=== PATIENT | male | born 1990 | race Two or more races ===

== ENCOUNTER 2018-03-17 15:26 | Emergency (ER) | payer SELFPAY ==
[2018-03-17] MEDS ORDERED: KETOROLAC 30 MG/ML VIAL IVP ONE (15:44)
--- NOTE | 2018-03-17 15:45 | Emergency Department Record ---
History of Present Illness - General Chief Complaint: Chest Pain Stated Complaint: chest pain Time Seen by Provider: 03/17/18 15:37 Source: Patient Mode of Arrival: Ambulatory Limitations: No limitations - History of Present Illness Initial Comments: The patient is here due to a 12 hour hx of first upper back pain then chest pain. He noticed sharp aching upper back pain about 12 hours ago between his shoulder blades mainly while arguing with his significant other. That pain did then resolve and the patient was able to go to sleep. He then woke up at 11am today with sharp stabbing L sided CP. The pain is intermittent and only lasts seconds at a time. The pain onset is mainly with movement, bending, talking and with deep breathing. He does feel mildly SOB with it at times but denies any sweating or nausea. The patient states when he is sitting and not moving or talking he has no pain. He has no hx of any cardiac issues or any CP with exertion. The patient does smoke cigarettes and has recently (1 week ago approx. ) used cocaine. The patient's only cardiac risk factor is tobacco use. MD Complaint: Chest pain Onset/Timin -: Hour(s) Pain Location: Substernal Pain Radiation: Back Severity: Mild Severity scale (1-10): 4 Consistency: Constant Improves With: Remaining still Worsens With: Movement Treatments Prior to Arrival: None - Related Data Previous Rx's Medication Instructions Recorded Naproxen [Naprosyn] 500 mg PO BID #14 tablet. 03/17/18 Allergies Allergy/AdvReac Type Severity Reaction Status Date / Time No Known Drug Allergies Allergy Verified 03/17/18 15:35 Travel Screening - Travel/Exposure Within Last 30 Days Have you traveled within the last 30 days?: No Review of Systems Constitutional: Denies: Chills, Fever Eyes: Denies: Eye discharge ENT: Denies: Congestion Respiratory: Denies: Cough, Dyspnea Cardiovascular: Denies: Arrhythmia Past Medical History - SOCIAL HISTORY Smoking Status: Current every day smoker Alcohol Use: None Drug Use: Occasional Drug Use Detail:: Cocaine, Marijuana - RESPIRATORY Hx Respiratory Disorders: No - CARDIOVASCULAR Hx Cardio Disorders: No - NEURO Hx Neuro Disorders: No - GI Hx GI Disorders: No - Hx Genitourinary Disorders: No - ENDOCRINE Hx Endocrine Disorders: No - MUSCULOSKELETAL Hx Musculoskeletal Disorders: No - PSYCH Hx Psych Problems: No - HEMATOLOGY/ONCOLOGY Hx Hematology/Oncology Disorders: No Family Medical History Any Significant Family History?: Yes Family Hx Comment (NOT TO BE USED IN PLACE OF ITEMS BELOW): mother- high cholesterol Hx Heart Disease: Mother Hx HTN: Father Physical Exam - General General Appearance: Alert, Oriented x3, Cooperative, No acute distress - Head Head exam: Atraumatic, Normocephalic, Normal inspection - Eye Eye exam: Normal appearance, PERRL - ENT Throat exam: Normal inspection. negative: Tonsillar erythema, Tonsillar exudate - Neck Neck exam: Normal inspection, Full ROM. negative: Tenderness - Respiratory Respiratory exam: Normal lung sounds bilaterally, Chest wall tenderness (THe L upper CP is 100% reproducible to palpation over the L 3rd and 4th costochondral joints. The patient is also 100% reproduced with deep breathing and twisting.). negative: Accessory muscle use, Decreased breath sounds, Prolonged expiratory , Respiratory distress - Cardiovascular Cardiovascular Exam: Regular rate, Normal rhythm, Normal heart sounds. negative : Diastolic murmur, Systolic murmur - GI/Abdominal GI/Abdominal exam: Soft, Normal bowel sounds. negative: Tenderness - Extremities Extremities exam: Normal inspection, Full ROM, Normal capillary refill. negative: Tenderness Image of Full Body: 1 - Area of pain and tenderness that reproduces the patient's pain. - Neurological Neurological exam: Alert. negative: Motor sensory deficit Course Vital Signs 03/17/18 15:29 Temperature 97.9 F Pulse Rate 103 H Respiratory 20 Rate Blood Pressure 145/74 Pulse Ox 99 - Reevaluation(s) Reevaluation #1: The patient is doing better at this time. His pain is much improved and basically gone at this time. The patient still feels the pain when twisting his chest. 03/17/18 16:31 Reevaluation #2: The patient is doing MUCH better at this time and is basically pain free. I did discuss the need to stop using illegal drugs with the patient. I also did discuss the Radiology xray read and the need for a repeat CXR in 3-6 months. Due to the time of the onset of the pain I did recommend a short stay for monitoring in the ED and repeat cardiac enzymes to be sure the patient is not having any cardiac ischemia. The patient is refusing that plan and would like to leave AMA. I did explain to him that by leaving AMA we cannot be held liable for NOT diagnosing any cardiac ischemia, which could lead to a stroke, [place], being disabled and . The patient understands and accepts the risks. He is to take the Naprosyn for pain and see his PCP next week for recheck. 03/17/18 16:53 Medical Decision Making - Data Complexity MDM Data: Labs Ordered and/or Reviewed, X-Ray Ordered and/or Reviewed, EKG Ordered and/or Reviewed - Lab Data Result diagrams: 03/17/18 15:46 03/17/18 15:46 - EKG Data -: EKG Interpreted by Me EKG: No Acute Changes (Diffuse J point elevation anterior leads. Normal variant. Neg for ischemia.), Normal EKG - Radiology Data Radiology results: Report reviewed (CXR: Neg for any acute process, ? two small lung nodules.) Disposition Disposition: Discharge Clinical Impression: Acute chest wall pain Disposition: Against Medical Advice Condition: (2) Stable Instructions: Chest Wall Pain (ED) Additional Instructions: Please take the Naprosyn for pain and please stop smoking and stop using illegal drugs. Please see your family doctor next week and have a repeat CXR ordered in 3-6 months. Return to the ER for any worsening pain, shortness of breath, or trouble breathing. Prescriptions: Naproxen [Naprosyn] 500 mg PO BID #14 tablet.dr Forms: Patient Portal Access Time of Disposition: 16:59 Quality - Quality Measures Quality Measures: N/A - Blood Pressure Screening View Details: Yes Does Patient Have Any of the Following: No Blood Pressure Classification: Normal BP Reading Systolic Measurement: 118 Diastolic Measurement: 72 Screening for High Blood Pressure: < Normal BP, F/U Not Required > [G8783]
[2018-03-17 15:54] LABS: BASO % 0.2 % (0-6); EOS % 1.3 % (0-6); GRAN % 61.9 % (47-80); HEMATOCRIT 48.3 % (42.0-52.0); HEMOGLOBIN 16.1 gm/dl (14.0-18.0); MEAN CELL VOLUME 90.3 fl (81-97); MEAN CORPUSCULAR HEMOGLOBIN 30.1 pg (27-33); MEAN CORPUSCULAR HGB CONC 33.3 g/dl (32-36); MEAN PLATELET VOLUME 8.4 fl (7.4-10.4); MONO % 12.6 % (0-9); PLATELET COUNT 366 K/uL (130-400); RED BLOOD COUNT 5.35 M/uL (4.40-5.70); RED CELL DISTRIBUTION WIDTH 14.5 % (11.5-14.5); WHITE BLOOD COUNT W/O DIFF 10.1 K/uL (4.2-12.2)
[2018-03-17 16:06] LABS: BLOOD UREA NITROGEN 8 mg/dL (6-20); CREATININE 0.8 mg/dL (0.7-1.2); EST GLOMERULAR FILTRATION RATE > 60 mL/min
[2018-03-17 16:09] LABS: GLUCOSE,RANDOM 79 mg/dL (74-109)
[2018-03-17 16:12] LABS: CREATINE PHOSPHOKINASE 143 U/L (39-308)
[2018-03-17 16:13] LABS: CKMB 1.7 ng/mL (<6.73)
[2018-03-17 16:24] LABS: INR 1.1; PARTIAL THROMBOPLASTIN TIME 28.7 SECONDS (24.5-39.1); PROTHROMBIN TIME (PATIENT) 11.3 SECONDS (9.5-12.1)
[2018-03-17 16:44] LABS: BARBITURATE SCREEN URINE NOT DETECTED; TRICYCLIC ANTIDEPRESSANT SCRN NOT DETECTED
[2018-03-17 16:45] LABS: AMPHETAMINE SCREEN URINE DETECTED; BENZODIAZEPINE SCREEN URINE NOT DETECTED; COCAINE SCREEN URINE NOT DETECTED; METHADONE SCREEN URINE DETECTED; METHAMPHETAMINE SCREEN DETECTED; OPIATE SCREEN URINE NOT DETECTED; OXYCODONE SCREEN URINE NOT DETECTED; PHENCYCLIDINE SCREEN URINE NOT DETECTED; PROPOXYPHENE SCREEN URINE NOT DETECTED; THC SCREEN URINE DETECTED
--- NOTE | 2018-03-19 22:57 | RADIOLOGY REPORT ---
EXAM: CHEST 2 VIEWS HISTORY: MID TO UPPER BACK PAIN FOR ONE DAY. NO KNOWN INJURY. SHORTNESS OF BREATH. TECHNIQUE: Upright PA and lateral views of the chest. COMPARISON: None. FINDINGS: The heart is not enlarged and the pulmonary vasculature is nondilated. No confluent airspace opacity is seen. There is a 3 mm nodular density in the right suprahilar lung, likely a calcified granuloma. There is a subtle nodular opacity projecting at the level of the lateral upper left hemithorax measuring 2 mm. This is of indeterminate etiology, though likely postinflammatory. The lungs and pleural spaces are otherwise clear. There is mild levoconvex curvature of the upper thoracic spine. IMPRESSION: 1. NO RADIOGRAPHIC EVIDENCE OF ACUTE CARDIOPULMONARY DISEASE. 2. NODULAR DENSITY IN THE RIGHT SUPRAHILAR REGION, LIKELY A CALCIFIED GRANULOMA OR VESSEL ON END. SMALL NODULAR OPACITY MEASURING 2 MM IN THE LATERAL UPPER LEFT HEMITHORAX. THIS IS NONSPECIFIC. IF THIS IS A LUNG NODULE, IT IS LIKELY POSTINFLAMMATORY. JOB NUMBER: [id number] MTDD
== END 2018-03-17 17:10 | disposition left against medical advice (07) ==
LOC: ER 15:26
DX: R07.89 Other chest pain (principal); M54.6 Pain in thoracic spine; R06.02 Shortness of breath; F17.210 Nicotine dependence, cigarettes, uncomplicated; F14.10 Cocaine abuse, uncomplicated
CPT/HCPCS: 99284 ×2; 96374; 82550; 85025; 85730; 85610; 82553; 80048; 80305; 84484; 85379; 71046; 93005; 93010; J1885